=== PATIENT | female | born 1965 | race Caucasian/White ===

== ENCOUNTER 2018-04-28 01:20 | Emergency (ER) | payer OTHER ==
[2018-04-28 01:29] VITALS: RESP 16
[2018-04-28] MEDS ORDERED: ORPHENADRINE 30 MG/ML 2 ML VIAL IM STA (02:41)
[2018-04-28] MEDS ORDERED: KETOROLAC 30 MG/ML 1 ML VIAL IM STA (02:41)
--- NOTE | 2018-04-28 03:11 | XR ---
EXAMINATION TYPE: XR Hip RT and AP Pelvis DATE OF EXAM: 04/28/2018 COMPARISON: NONE HISTORY: Fall. Hip pain. TECHNIQUE: A single AP view of the pelvis is obtained. Two views of the right hip are obtained. FINDINGS: The pelvic ring is intact. There is a shallow right acetabulum. There is deformity of the r ight femoral head with flattening of the articular surface consistent with old hip dysplasia. I see n o acute fracture nor dislocation. Sacroiliac joints are intact. IMPRESSION: Old right hip dysplasia. No fracture seen.
--- NOTE | 2018-04-28 03:12 | XR ---
EXAMINATION TYPE: XR knee complete RT DATE OF EXAM: 04/28/2018 COMPARISON: NONE HISTORY: Knee pain TECHNIQUE: 3 views FINDINGS: I see no fracture nor dislocation. Joint spaces are normal. There is no sign of knee joint effusion. IMPRESSION: Normal right knee.
--- NOTE | 2018-04-28 03:42 | ED ---
Back Pain HPI - General Source: patient Limitations: no limitations <Jeniffer Stack - Last Filed: 04/28/18 05:03> <Gladys Gauthier - Last Filed: 04/30/18 01:15> - General Chief Complaint: Back Pain/Injury Stated Complaint: Back pain-[facility] Time Seen by Provider: 04/28/18 02:09 - History of Present Illness Initial Comments: 52-year-old female patient presents to the emergency department today for evaluation of right lower back pain and right knee pain. Patient states about an hour prior to arrival she was at work when she slipped on wet floor and twisted her back and her knee. Patient states that the pain in her left lower back is radiating down into the right buttock and into her hip. States that she is also having some right knee pain that radiates up her leg and down her leg. Patient states that she does have some numbness to the right leg but that is usual for her related to chronic hip and knee issues. Patient has a history of congenital hip dysplasia and has had gross issues with the right leg. Patient denies any saddle anesthesia or loss of bowel or bladder control. She denies a fall with the injury. Denies any other injuries. Patient denies any headache, neck pain, chest pain, shortness of breath, dizziness, weakness, abdominal pain, nausea, vomiting, or difficulties with bowel movements or urination. (Jeniffer Stack) - Related Data Previous Rx's Medication Instructions Recorded Cyclobenzaprine [Flexeril] 10 mg PO TID #15 tab 04/28/18 Ibuprofen [Motrin] 600 mg PO Q8HR PRN #30 tab 04/28/18 Allergies Allergy/AdvReac Type Severity Reaction Status Date / Time Sulfa (Sulfonamide Allergy Swelling Verified 04/28/18 01:29 Antibiotics) Review of Systems ROS Other: All systems not noted in ROS Statement are negative. <Jeniffer Stack - Last Filed: 04/28/18 05:03> ROS Other: All systems not noted in ROS Statement are negative. <Gladys Gauthier - Last Filed: 04/30/18 01:15> ROS Statement: Those systems with pertinent positive or pertinent negative responses have been documented in the HPI. Past Medical History Additional Past Medical History / Comment(s): bilateral hip dysplasia. breast cancer 2015. History of Any Multi-Drug Resistant Organisms: None Reported Past Surgical History: Orthopedic Surgery Additional Past Surgical History / Comment(s): right knee. Past Psychological History: No Psychological Hx Reported Smoking Status: Current every day smoker Past Alcohol Use History: None Reported Past Drug Use History: None Reported <Jeniffer Stack M - Last Filed: 04/28/18 05:03> General Exam Limitations: no limitations General appearance: alert, in no apparent distress, other (This is a well- developed, well-nourished adult female patient in no acute distress. Vital signs upon presentation are temperature 98.5F, pulse 76, respiration 16, blood pressure 175/105, pulse ox 98% on room air.) Eye exam: Present: normal appearance, PERRL, EOMI. Absent: scleral icterus, conjunctival injection, periorbital swelling ENT exam: Present: normal exam, normal oropharynx, mucous membranes moist Respiratory exam: Present: normal lung sounds bilaterally. Absent: respiratory distress, wheezes, rales, rhonchi, stridor Cardiovascular Exam: Present: regular rate, normal rhythm, normal heart sounds. Absent: systolic murmur, diastolic murmur, rubs, gallop, clicks GI/Abdominal exam: Present: soft, normal bowel sounds. Absent: distended, tenderness, guarding, rebound, rigid Extremities exam: Present: normal inspection, full ROM, normal capillary refill , other (Right lower extremity is pink, warm, and dry. Cap refills less than 3 seconds. Patient has full range of motion to the right knee. Pedal and posttibial pulses are 2+ and equal bilaterally.). Absent: tenderness, pedal edema, joint swelling, calf tenderness Back exam: Present: normal inspection, other (Patient has right lower back tenderness). Absent: vertebral tenderness Neurological exam: Present: alert, oriented X3, CN II-XII intact Psychiatric exam: Present: normal affect, normal mood Skin exam: Present: warm, dry, intact, normal color. Absent: rash <Jeniffer Stack M - Last Filed: 04/28/18 05:03> Vital Signs 04/28/18 04/28/18 01:26 04:36 Temperature 98.5 F 97.0 F L Pulse Rate 76 58 L Respiratory 16 16 Rate Blood Pressure 175/105 167/86 O2 Sat by Pulse 98 97 Oximetry Medical Decision Making - Radiology Data Radiology results: report reviewed, image reviewed <Jeniffer Stack - Last Filed: 04/28/18 05:03> <Gladys Gauthier - Last Filed: 04/30/18 01:15> - Medical Decision Making 52-year-old female patient presented to the emergency department today for injury to her low back and right knee. Physical examination did reveal some tenderness to the right lower back. Neurovascular status was intact to the lower extremities. Patient is neurologically intact. X-ray of the right hip and pelvis was obtained and showed no acute abnormalities. X-ray of the right knee was obtained and showed no acute abnormalities. Did receive injections here in the emergency department. Upon reevaluation she reported she was feeling better. Did discuss findings and results with the patient and discuss her symptoms are most likely related to muscle strain. She'll be given a prescription for ibuprofen and muscle relaxers. She is instructed to follow-up with the primary care physician or [facility] for further evaluation as soon as possible. Return parameters were discussed in detail. She verbalizes understanding and agrees with this plan. (Jeniffer Stack) I was available for consultation in the emergency department. The history and physical exam were done by the midlevel provider. I was consulted for this patient's care. I reviewed the case with the midlevel provider and based on their presentation of the patient, I agree with the assessment, medical decision making and plan of care as documented. (Gladys Gauthier) - Radiology Data Reviews of the right knee are obtained. There is no fracture or dislocation noted. Joint spaces are normal. There is no sign of any joint effusion. Impression by Dr. Jovel shows normal right knee. A single view of the pelvis and 2 views of the right hip are obtained. The pelvic ring is intact. There are shallow right acetabulum. There is deformity of the right femoral head flattening of the articular surface consistent with old hip dysplasia. I see no acute fracture nor dislocation. Sacroiliac joints are intact. Impression by Dr. Jovel shows old right hip dysplasia. No fracture seen. (Jeniffer Stack) Disposition Is patient prescribed a controlled substance at d/c from ED?: No Time of Disposition: 03:42 <Jeniffer Stack - Last Filed: 04/28/18 05:03> <Gladys Gauthier P - Last Filed: 04/30/18 01:15> Clinical Impression: Low back strain, Strain of right knee Disposition: HOME SELF-CARE Condition: Good Instructions: Low Back Strain (ED), Acute Low Back Pain (ED), Knee Pain (ED) Additional Instructions: Apply ice to the painful areas. Perform gentle range of motion exercises. Take medication as directed. Follow-up with your primary care physician or [facility] services for recheck in 1-2 days. Return here immediately for any new, worsening, or concerning symptoms. Prescriptions: Cyclobenzaprine [Flexeril] 10 mg PO TID #15 tab Ibuprofen [Motrin] 600 mg PO Q8HR PRN #30 tab PRN Reason: Pain Referrals: None,Stated [Primary Care Provider] - 1-2 days
[2018-04-28 04:37] VITALS: BP 167/86; PULSE 58; TEMP 97
== END 2018-04-28 04:40 | disposition home or self-care (01) ==
LOC: EC 01:20
DX: S39.012A Strain of muscle, fascia and tendon of lower back, initial encounter (principal); S86.911A Strain of unspecified muscle(s) and tendon(s) at lower leg level, right leg, initial encounter; Q65.89 Other specified congenital deformities of hip; F17.200 Nicotine dependence, unspecified, uncomplicated; Z88.2 Allergy status to sulfonamides; Z85.3 Personal history of malignant neoplasm of breast; W01.0XXA Fall on same level from slipping, tripping and stumbling without subsequent striking against object, initial encounter; Y92.69 Other specified industrial and construction area as the place of occurrence of the external cause; Y99.0 Civilian activity done for income or pay
CPT/HCPCS: 73502; 73562; 99283; 96372 ×2; J2360; J1885

== ENCOUNTER → 2018-05-01 | Outpatient (CLI) | payer OTHER ==
--- NOTE | 2018-05-01 15:10 | XR ---
EXAMINATION TYPE: XR lumbosacral spine min 4V DATE OF EXAM: 05/01/2018 COMPARISON: None HISTORY: Twisted back, pain TECHNIQUE: Five-view lumbar spine FINDINGS: There 5 lumbar-type vertebral bodies. Pedicles are intact. Disc heights are preserved. Vert ebral body heights are preserved. Facets as visualized are normal. There is some limitation on the ob lique views. No spondylolytic defects are evident. IMPRESSION: 1. Normal 5 view lumbar spine
== END | disposition home or self-care (01) ==
LOC: RADXRMAIN 14:29
PROVIDERS: ATTEND Emergency Medicine
DX: S33.5XXA Sprain of ligaments of lumbar spine, initial encounter (principal)
CPT/HCPCS: 72110